=== PATIENT | male | born 1980 | race Caucasian/White ===

== ENCOUNTER 2023-03-27 13:48 | Outpatient (REF) | payer OTHER, SELFPAY ==
[2023-03-27 18:08] LABS: MANUAL DIFF FLAG NO
[2023-03-27 18:13] LABS: Basophils Absolute Auto 0.1 X10*3/uL (0.0-0.2); Basophils Percent Auto 0.8 % (0-2); Eosinophils Absolute Auto 0.2 X10*3/uL (0.0-0.4); Eosinophils Percent Auto 2.6 % (0-4); Hematocrit 43.6 % (42.0-52.0); Hemoglobin 14.9 g/dl (14.0-18.0); Imm Gran Abs Auto 0.02 X10*3/uL (0.00-0.03); Imm Gran Pct Auto 0.3 % (0.0-0.4); Lymphocytes Percent Auto 32.6 % (20-40); Mean Corpuscular HGB Conc 34.2 g/dl (31.0-36.0); Mean Corpuscular Hemoglobin 30.5 pg (27.0-33.0); Mean Corpuscular Volume 89.2 fL (80.0-98.0); Mean Platelet Volume 9.8 fL (9.4-12.4); Monocytes Absolute Auto 0.5 X10*3/uL (0.1-1.2); Monocytes Percent Auto 8.8 % (2-11); Neutrophils Absolute Auto 3.4 x10*3/uL (2.0-8.3); Neutrophils Percent Auto 54.9 % (45-73); Platelet Count 288 X10*3/uL (160-400); Red Blood Count 4.89 X10*6/uL (4.60-5.80); Red Cell Distribution Width 11.9 % (11.0-16.0); White Blood Count 6.1 X10*3/uL (4.8-10.8)
[2023-03-27 18:54] LABS: Alanine Aminotransferase 48 U/L (0-40); Albumin Level 4.2 g/dL (3.5-5.0); Alkaline Phosphatase 83 U/L (39-117); Anion Gap 13 (12-20); Aspartate Amino Transferase 32 U/L (5-37); Bilirubin Total 0.5 mg/dL (0.0-1.0); Blood Urea Nitrogen 7 mg/dL (9-16); Calcium 9.9 mg/dL (8.4-10.2); Carbon Dioxide 26 mmol/L (22-29); Chloride 103 mmol/L (96-108); Estimated Glomerular Filt Rate > 60; Glucose Random 106 mg/dL (60-115); Potassium 3.8 mmol/L (3.3-5.1); Sodium 138 mmol/L (135-145); Total Protein 7.7 g/dL (6.5-8.0)
[2023-03-31 14:04] LABS: HIV RNA PCR Qn Copies NOT DETECTED copies/mL (NOT DETECTED); HIV RNA PCR Qn Log Copies NOT DETECTED (NOT DETECTED)
== END 2023-03-27 13:49 | disposition home or self-care (01) ==
LOC: HO.HHCL 13:48
PROVIDERS: Visit Provider Family Medicine
DX: Z21 Asymptomatic human immunodeficiency virus [HIV] infection status (principal)
CPT/HCPCS: 36415; 80053; 85025; 86359; 86360; 87536

== ENCOUNTER 2023-04-10 09:31 | Outpatient (REF) | payer SELFPAY ==
[2023-04-10 12:33] LABS: Creatinine Urine 25.73 mg/dL
== END 2023-04-10 09:32 | disposition home or self-care (01) ==
LOC: HO.HHCL 09:31
PROVIDERS: Visit Provider Nurse Practitioner Primary Care
DX: E11.65 Type 2 diabetes mellitus with hyperglycemia (principal)
CPT/HCPCS: 82043; 82570

== ENCOUNTER 2023-09-24 08:54 | Outpatient (REF) | payer MEDICAID, SELFPAY ==
[2023-09-24 11:27] LABS: MANUAL DIFF FLAG NO
[2023-09-24 11:38] LABS: Basophils Percent Auto 0.5 % (0-2); Eosinophils Absolute Auto 0.1 X10*3/uL (0.0-0.4); Eosinophils Percent Auto 2.3 % (0-4); Hematocrit 43.3 % (42.0-52.0); Hemoglobin 14.7 g/dl (14.0-18.0); Imm Gran Abs Auto 0.03 X10*3/uL (0.00-0.03); Imm Gran Pct Auto 0.5 % (0.0-0.4); Lymphocytes Absolute Auto 1.7 X10*3/uL (1.2-4.9); Lymphocytes Percent Auto 29.8 % (20-40); Mean Corpuscular HGB Conc 33.9 g/dl (31.0-36.0); Mean Corpuscular Hemoglobin 30.2 pg (27.0-33.0); Mean Corpuscular Volume 89.1 fL (80.0-98.0); Mean Platelet Volume 9.7 fL (9.4-12.4); Monocytes Absolute Auto 0.5 X10*3/uL (0.1-1.2); Monocytes Percent Auto 8.3 % (2-11); Neutrophils Absolute Auto 3.3 x10*3/uL (2.0-8.3); Neutrophils Percent Auto 58.6 % (45-73); Platelet Count 319 X10*3/uL (160-400); Red Blood Count 4.86 X10*6/uL (4.60-5.80); Red Cell Distribution Width 12.2 % (11.0-16.0); White Blood Count 5.6 X10*3/uL (4.8-10.8)
[2023-09-24 12:05] LABS: Alanine Aminotransferase 50 U/L (0-40); Albumin Level 4.2 g/dL (3.5-5.0); Alkaline Phosphatase 83 U/L (39-117); Anion Gap 12 (12-20); Aspartate Amino Transferase 32 U/L (5-37); Bilirubin Total 0.4 mg/dL (0.0-1.0); Blood Urea Nitrogen 6 mg/dL (9-16); Calcium 9.8 mg/dL (8.4-10.2); Carbon Dioxide 25 mmol/L (22-29); Chloride 103 mmol/L (96-108); Cholesterol 203 mg/dL (<200); Estimated Glomerular Filt Rate > 60; Glucose Random 151 mg/dL (60-115); HDL Cholesterol 44 mg/dL (>40); LDL Cholesterol Calculated 140 mg/dL (<100); Potassium 4.4 mmol/L (3.3-5.1); Sodium 136 mmol/L (135-145); Syphilis Screen Nonreactive (Nonreactive); Total Protein 7.6 g/dL (6.5-8.0); Triglycerides 98 mg/dL (<150)
[2023-09-24 12:08] LABS: HBc Num1 0.13 S/CO (0.00-0.79); HBsAGNum1 0.51 S/CO (0.00-0.99); Hepatitis B Core Antibody Nonreactive (Nonreactive); Hepatitis B Surface Antigen Negative (Negative)
[2023-09-24 12:24] LABS: HBS Num1 17.76 mIU/mL (0-7.99); ~Hepatitis B Surface Antibody REACTIVE (Nonreactive); ~Hepatitis C Antibody Nonreactive (Nonreactive)
[2023-09-24 12:36] LABS: Reflex LDLD? No
[2023-09-25 11:33] LABS: Absolute CD3 Count 1221 cells/uL (840-3060); Absolute CD4 Count 558 cells/uL (490-1740); Absolute CD8 Count 645 cells/uL (180-1170); Absolute Lymphocytes 1758 cells/uL (850-3900); CD4 CD8 Ratio 0.86 (0.86-5.00); Percent CD3 Cells 69 % (57-85); Percent CD4 Cells 32 % (30-61); Percent CD8 Cells 37 % (12-42)
[2023-09-26 14:28] LABS: HIV RNA PCR Qn Copies 50 copies/mL (NOT DETECTED)
== END 2023-09-24 08:55 | disposition home or self-care (01) ==
LOC: HO.HHCL 08:54
PROVIDERS: Visit Provider Student in an Organized Health Care Education/Training Program
DX: B20 Human immunodeficiency virus [HIV] disease (principal)
CPT/HCPCS: 36415; 80053; 80061; 85025; 86359; 86360; 86704; 86706; 86780; 86803; 87340; 87536

== ENCOUNTER 2024-03-07 07:57 | Outpatient (REF) | payer MEDICAID, SELFPAY ==
[2024-03-07 11:20] LABS: MANUAL DIFF FLAG NO
[2024-03-07 11:31] LABS: Basophils Absolute Auto 0.1 X10*3/uL (0.0-0.2); Basophils Percent Auto 0.8 % (0-2); Eosinophils Absolute Auto 0.1 X10*3/uL (0.0-0.4); Hematocrit 41.1 % (42.0-52.0); Imm Gran Abs Auto 0.02 X10*3/uL (0.00-0.03); Imm Gran Pct Auto 0.3 % (0.0-0.4); Lymphocytes Absolute Auto 1.8 X10*3/uL (1.2-4.9); Lymphocytes Percent Auto 29.4 % (20-40); Mean Corpuscular HGB Conc 34.1 g/dl (31.0-36.0); Mean Corpuscular Hemoglobin 30.3 pg (27.0-33.0); Mean Platelet Volume 9.5 fL (9.4-12.4); Monocytes Absolute Auto 0.5 X10*3/uL (0.1-1.2); Neutrophils Absolute Auto 3.6 x10*3/uL (2.0-8.3); Neutrophils Percent Auto 59.5 % (45-73); Platelet Count 287 X10*3/uL (160-400); Red Blood Count 4.62 X10*6/uL (4.60-5.80); Red Cell Distribution Width 12.4 % (11.0-16.0)
[2024-03-07 11:45] LABS: Alanine Aminotransferase 38 U/L (0-40); Albumin Level 4.1 g/dL (3.5-5.0); Alkaline Phosphatase 73 U/L (39-117); Anion Gap 9 (12-20); Aspartate Amino Transferase 25 U/L (5-37); Bilirubin Total 0.4 mg/dL (0.0-1.0); Blood Urea Nitrogen 8 mg/dL (9-16); Carbon Dioxide 24 mmol/L (22-29); Chloride 105 mmol/L (96-108); Cholesterol 189 mg/dL (<200); Estimated Glomerular Filt Rate > 60; Glucose Random 151 mg/dL (60-115); HDL Cholesterol 47 mg/dL (>40); LDL Cholesterol Calculated 121 mg/dL (<100); Potassium 4.3 mmol/L (3.3-5.1); Sodium 134 mmol/L (135-145); Total Protein 7.2 g/dL (6.5-8.0); Triglycerides 109 mg/dL (<150)
[2024-03-07 12:30] LABS: Reflex LDLD? No
[2024-03-08 19:29] LABS: HIV RNA PCR Qn Copies 54 copies/mL (NOT DETECTED); HIV RNA PCR Qn Log Copies 1.73 (NOT DETECTED)
[2024-03-12 00:09] LABS: Absolute CD3 Count 1160 cells/uL (840-3060); Absolute CD4 Count 552 cells/uL (490-1740); Absolute CD8 Count 612 cells/uL (180-1170); Absolute Lymphocytes 1692 cells/uL (850-3900); Percent CD3 Cells 69 % (57-85); Percent CD4 Cells 33 % (30-61); Percent CD8 Cells 36 % (12-42)
== END 2024-03-07 07:58 | disposition home or self-care (01) ==
LOC: HO.HHCL 07:57
PROVIDERS: Visit Provider Internal Medicine
DX: Z21 Asymptomatic human immunodeficiency virus [HIV] infection status (principal)
CPT/HCPCS: 36415; 80053; 80061; 85025; 86359; 86360; 87536

== ENCOUNTER 2024-04-14 13:16 | Outpatient (REF) | payer MEDICAID, SELFPAY ==
[2024-04-14 14:21] LABS: Creatinine Urine 28.61 mg/dL; Microalbum/Creatinine Ratio Ur 34.9 ug/mg cr (<30)
== END 2024-04-14 13:17 | disposition home or self-care (01) ==
LOC: HO.HHCLNP 13:16
PROVIDERS: Visit Provider Nurse Practitioner Primary Care
DX: E11.65 Type 2 diabetes mellitus with hyperglycemia (principal)
CPT/HCPCS: 82043; 82570

== ENCOUNTER 2024-05-26 17:57 | Outpatient (REF) | payer OTHER, SELFPAY | END 2024-05-26 17:58 | disposition home or self-care (01) | LOC: HO.HHCLNP 17:57 | PROVIDERS: Visit Provider Internal Medicine | DX: Z21 Asymptomatic human immunodeficiency virus [HIV] infection status (principal) | CPT/HCPCS: 88112 ==

== ENCOUNTER 2024-09-02 08:25 | Outpatient (REF) | payer OTHER, SELFPAY ==
[2024-09-02 12:02] LABS: MANUAL DIFF FLAG NO
[2024-09-02 12:33] LABS: Alanine Aminotransferase 52 U/L (0-40); Alkaline Phosphatase 85 U/L (39-117); Anion Gap 10 (12-20); Aspartate Amino Transferase 38 U/L (5-37); Bilirubin Total 0.5 mg/dL (0.0-1.0); Blood Urea Nitrogen 6 mg/dL (9-16); Calcium 9.8 mg/dL (8.4-10.2); Carbon Dioxide 26 mmol/L (22-29); Chloride 106 mmol/L (96-108); Cholesterol 186 mg/dL (<200); Estimated Glomerular Filt Rate > 60; Glucose Random 139 mg/dL (60-115); HDL Cholesterol 38 mg/dL (>40); LDL Cholesterol Calculated 120 mg/dL (<100); Potassium 4.2 mmol/L (3.3-5.1); Sodium 138 mmol/L (135-145); Total Protein 7.6 g/dL (6.5-8.0); Triglycerides 140 mg/dL (<150)
[2024-09-02 12:35] LABS: Basophils Percent Auto 0.6 % (0-2); Eosinophils Percent Auto 0.9 % (0-4); Hematocrit 40.8 % (42.0-52.0); Hemoglobin 13.6 g/dl (14.0-18.0); Imm Gran Abs Auto 0.02 X10*3/uL (0.00-0.03); Imm Gran Pct Auto 0.4 % (0.0-0.4); Lymphocytes Absolute Auto 1.4 X10*3/uL (1.2-4.9); Lymphocytes Percent Auto 29.4 % (20-40); Mean Corpuscular HGB Conc 33.3 g/dl (31.0-36.0); Mean Corpuscular Hemoglobin 29.4 pg (27.0-33.0); Mean Corpuscular Volume 88.3 fL (80.0-98.0); Mean Platelet Volume 9.5 fL (9.4-12.4); Monocytes Absolute Auto 0.4 X10*3/uL (0.1-1.2); Monocytes Percent Auto 7.9 % (2-11); Neutrophils Absolute Auto 2.9 x10*3/uL (2.0-8.3); Neutrophils Percent Auto 60.8 % (45-73); Platelet Count 321 X10*3/uL (160-400); Red Blood Count 4.62 X10*6/uL (4.60-5.80); Red Cell Distribution Width 12.7 % (11.0-16.0); White Blood Count 4.7 X10*3/uL (4.8-10.8)
[2024-09-02 12:59] LABS: ~HepC Num1 0.08 S/CO (0.00-0.79); ~Hepatitis C Antibody Nonreactive (Nonreactive)
[2024-09-02 13:00] LABS: Syphilis Screen Nonreactive (Nonreactive)
[2024-09-02 14:34] LABS: CT PCR NOT DETECTED (Not Detect.); NG PCR NOT DETECTED (Not Detect.)
[2024-09-02 14:36] LABS: Reflex LDLD? No
[2024-09-03 15:13] LABS: HIV RNA PCR Qn Copies 54 copies/mL (NOT DETECTED); HIV RNA PCR Qn Log Copies 1.73 (NOT DETECTED)
[2024-09-07 16:14] LABS: Absolute CD3 Count 996 cells/uL (840-3060); Absolute CD4 Count 447 cells/uL (490-1740); Absolute CD8 Count 543 cells/uL (180-1170); Absolute Lymphocytes 1424 cells/uL (850-3900); CD4 CD8 Ratio 0.82 (0.86-5.00); Percent CD3 Cells 70 % (57-85); Percent CD4 Cells 31 % (30-61); Percent CD8 Cells 38 % (12-42)
== END 2024-09-02 08:26 | disposition home or self-care (01) ==
LOC: HO.HHCL 08:25
PROVIDERS: Visit Provider Internal Medicine
DX: Z21 Asymptomatic human immunodeficiency virus [HIV] infection status (principal)
CPT/HCPCS: 80053; 80061; 85025; 86359; 86360; 86780; 86803; 87491; 87536; 87591

== ENCOUNTER 2025-03-02 08:03 | Outpatient (REF) | payer MEDICAID, SELFPAY ==
--- OUTSIDE RECORDS SUMMARY | 2025-03-02 08:09 | XMS_ITS | Patient Health Record ---
Author Organization [facility] Address [address] [place] [address] Care Team Providers Care Qa Lead Name Role Phone MARIA LUISA WADDELL N.P. Primary Care Provider Unavailabl e Daniele Koenig Unavailable [phone] Allergies No Known Allergies Reason For Referral Referring Provider First Name MARIA LUISA Referring Provider Last Name NADIRA Crowell Referred Organization [facility] Referred Provider Daniele Koenig Referred Address [address] [place] [address],[address],[place], [place],[address], Referred Provider Specialty Gastroentero logy General Notes Ellen Rubalcava 024 11:51:52 AM EDT > requested a [facility] referrral from [facility] for visit with dr koenig on 05-24-2024 from [facility] Referral Priority Routine Medications Medication SIG (Take, Route, Frequency, Duration) Notes Start Date End Date Status Odefsey 200-25-25 MG TAKE 1 TABLET BY MOUTH AT BEDTIME Oral for 30 Z21,Unavailable Active Dulcolax (colon prep) 5 MG take at 3:00 p.m and 7:00p.m. Orally two tablets twice a day for one day for 1 day 05/24/2024 Active MiraLax (colon prep) 17 GM/SCOOP 1 238Gm bottle mixed with Gatorade or Crystal Light Orally begin at 5:00 p.m. the day before the procedure for 1 day 05/24/2024 Active metFORMIN HCl 500 MG TAKE 1 TABLET BY MOUTH TWICE DAILY WITH BREAKFAST and WITH DINNER Oral for 90 E1165,Unavailabl e Active Social History Tobacco Use: Social History Observation Description Date Details (start date - stop date) Never Smoker NA - NA Tobacco Use/Smoking Question Answer Notes Patient is a nonsmoker Alcohol Screen Question Answer Notes Did you have a drink contain ing alcohol in the past year? Yes How often did you have a dri nk containing alcohol in the past year? Monthly or less (1 point) How many drinks did you have on a typical day when you were drinking in the past year? 1 or 2 drinks (0 point) How often did you have 6 or more drinks on one occasion in the past year? Never (0 point) Points 1 Interpretation Negative Section Notes: Nonsmoker; no sig alcohol Problems Problem Type SNOMED Code ICD Code Onset Dates Problem Status W/U Status Risk Notes Problem Screening for malignant neoplasm of colon (437658280) Encounter for screening for malignant neoplasm of colon (Z12.11) Active confirmed Problem Pre-procedure evaluation check (386861922) Encounter for other preprocedural examination (Z01.818) Active confirmed Vital Signs Blood pressure diastolic 00 mm Hg 05/24/2024 Height 5 ft 6 in in 05/24/2024 Blood pressure systolic 00 mm Hg 05/24/2024 Weight 206 lbs 05/24/2024 BMI 33.25 kg/m2 05/24/2024 Encounters Encounter Location Date Provider Diagnosis [facility] [address] [place] [phone] 05/24/2024 Daniele Koenig Encounter for screen ing for malignant neoplasm of colon Z12.11 and Encounter for other preprocedural examination Z01.818 [facility] [address] [place] [phone] 05/24/2024 Daniele Koenig [facility] [address] [place] [phone] 06/05/2024 Daniele Koenig [facility] [address] [place] [phone] 10/09/2024 Daniele Koenig Assessments Encounter Date Diagnosis (ICD Code) Assessment Notes Treatment Notes Treatment Clinical Notes Section Notes 05/24/2024 Encounter for screening for malignant neoplasm of colon (ICD-10 - Z12.11) Do not take the Metformin the night before nor on the morning of the procedure Overall, Khai appears quite well. Given his age and excellent clinical appearance, I did recommend a colonoscopy for screening purposes. We did review the rationale for that In regard to colon cancer prevention. Full consent was obtained for this, including risks of bleeding and perforation. The procedure will be done with monitored anesthesia care. He was given the below instructions regarding adjustment of his medications for the procedure. Thank you again for allowing me to participate in Khai's care. I shall continue to keep you advised of his progress. 05/24/2024 Encounter for other preprocedural examination (ICD-10 - Z01.818) Overall, Khai appears quite well. Given his age and excellent clinical appearance, I did recommend a colonoscopy for screening purposes. We did review the rationale for that In regard to colon cancer prevention. Full consent was obtained for this, including risks of bleeding and perforation. The procedure will be done with monitored anesthesia care. He was given the below instructions regarding adjustment of his medications for the procedure. Thank you again for allowing me to participate in Khai's care. I shall continue to keep you advised of his progress. Plan Of Treatment Future Test Test Name Order Date COLONOSCOPY 05/24/2024 Insurance Providers Payer Name Payer Address Payer Phone Subscriber Number Group Number Insured Name Patient Relationship to Insured Coverage Start Date Coverage End Date [facility] [address] [place] [phone] [id number] KHAI COLMENARES Self - patient is the insured Medical (General) History Medical History History ICD Code NIDDM HIV Denies [place],CVA,Lung disease,renal disease Surgical History Surgery Date(Month/Year)
[2025-03-02 11:06] LABS: MANUAL DIFF FLAG NO
[2025-03-02 11:21] LABS: Hematocrit 40.6 % (42.0-52.0); Hemoglobin 13.6 g/dl (14.0-18.0); Imm Gran Abs Auto 0.02 X10*3/uL (0.00-0.03); Imm Gran Pct Auto 0.4 % (0.0-0.4); Lymphocytes Absolute Auto 1.5 X10*3/uL (1.2-4.9); Mean Corpuscular HGB Conc 33.5 g/dl (31.0-36.0); Mean Corpuscular Hemoglobin 28.9 pg (27.0-33.0); Mean Corpuscular Volume 86.4 fL (80.0-98.0); NRBC Abs Auto 0.000 X10*3/uL (0.0-0.012); NRBC Pct Auto 0.0 /100WBC (0.0-0.2); Platelet Count 295 X10*3/uL (160-400); Red Blood Count 4.70 X10*6/uL (4.60-5.80); White Blood Count 5.3 X10*3/uL (4.8-10.8)
[2025-03-02 11:37] LABS: Alanine Aminotransferase 59 U/L (0-40); Albumin Level 4.2 g/dL (3.5-5.0); Alkaline Phosphatase 81 U/L (39-117); Anion Gap 12 (12-20); Aspartate Amino Transferase 47 U/L (5-37); Blood Urea Nitrogen 7 mg/dL (9-16); Calcium 9.2 mg/dL (8.4-10.2); Carbon Dioxide 23 mmol/L (22-29); Chloride 105 mmol/L (96-108); Estimated Glomerular Filt Rate > 60; Potassium 4.3 mmol/L (3.3-5.1); Sodium 136 mmol/L (135-145); Total Protein 7.3 g/dL (6.5-8.0)
[2025-03-03 15:53] LABS: HIV RNA PCR Qn Copies 114 copies/mL (NOT DETECTED); HIV RNA PCR Qn Log Copies 2.06 (NOT DETECTED)
[2025-03-04 21:49] LABS: TS Negative Control Passed; TS Panel A 1; TS Panel B 5; TS Positive Control Passed; TSpotTB Borderline (Negative)
[2025-03-07 16:58] LABS: Absolute CD3 Count 1098 cells/uL (840-3060); Absolute CD8 Count 545 cells/uL (180-1170); Percent CD3 Cells 73 % (57-85); Percent CD8 Cells 36 % (12-42)
== END 2025-03-02 08:04 | disposition home or self-care (01) ==
LOC: HO.HHCL 08:03
PROVIDERS: PCP Nurse Practitioner Primary Care; Visit Provider Internal Medicine
DX: Z21 Asymptomatic human immunodeficiency virus [HIV] infection status (principal); Z11.1 Encounter for screening for respiratory tuberculosis
CPT/HCPCS: 36415; 80053; 85025; 86359; 86360; 86481; 87536

== ENCOUNTER 2025-06-15 11:35 | Outpatient (REF) | payer MEDICAID, SELFPAY ==
--- OUTSIDE RECORDS SUMMARY | 2024-10-10 02:30 | XMS_ITS ---
Author Organization [facility] Address [address] [place] [address] Care Team Providers Care Rectification Printer Name Role Phone MARIA LUISA WADDELL N.P. Primary Care Provider Daniele Butterfield [phone] REASON FOR VISIT screening Encounters Encounter Location Date Provider Diagnosis [facility] [address] [place] [phone] 10/10/2024 Daniele Diggs Plan Of Treatment No Information Progress Notes * KHAI COLMENARESDOB:1980 (45 yo M)Acc No.[id number]:10/10/2024 COLON WITH MAC Patient: KHAI AL Provider: Swapna Diggs MD :1980 A ge:44 Y S ex:Male Date:10/10/2024 Address:[address] [place], [place] [id number] Pcp:MARIA LUISA WADDELL N.P. Subjective: * Chief Complaints: * 1 . Screening. * Medical History: Objective: * Vitals: Assessment: Plan: * Treatment: * * The named appointment provid er may or may not be the originator of this progress note, and it is not deemed complete until electronically signed by the appointment provider. Sign off status: Pending * Provider: Swapna Diggs MD Date: 0 10/10/2024 Generated for Shanelle alcala/Faterryg/eTransmitting on: 1 08/15/2024 09:28 AM EST
--- OUTSIDE RECORDS SUMMARY | 2025-06-15 14:46 | XMS_ITS | Patient Health Record ---
Author Organization [facility] Address [address] [place] [phone] Care Team Providers Care Licensed Aircraft Maintenance Engineer Name Role Phone MARIA LUISA WADDELL N.P. Primary Care Provider Unavailabl e Daniele Diggs Unavailable [phone] Allergies No Known Allergies Reason For Referral No Information Medications Medication SIG (Take, Route, Frequency, Duration) Notes Start Date End Date Status Odefsey 200-25-25 MG TAKE 1 TABLET BY MOUTH AT BEDTIME Oral; Duration: 30 Z21,Unavailable Active Dulcolax (colon prep) 5 MG take at 3:00 p.m and 7:00p.m. Orally two tablets twice a day for one day; Duration: 1 day 05/24/2024 Active MiraLax (colon prep) 17 GM/SCOOP 1 238Gm bottle mixed with Gatorade or Crystal Light Orally begin at 5:00 p.m. the day before the procedure; Duration: 1 day 05/24/2024 Active metFORMIN HCl 500 MG TAKE 1 TABLET BY MOUTH TWICE DAILY WITH BREAKFAST and WITH DINNER Oral; Duration: 90 E1165,Unavailabl e Active Social History Tobacco [...] Problem Screening for malignant neoplasm of colon (576629341) Encounter for screening for malignant neoplasm of colon (Z12.11) Active confirmed Problem Pre-procedure evaluation check (747992891) Encounter for other preprocedural examination (Z01.818) Active confirmed Encounters Encounter Location Date Provider Diagnosis [facility] [address] [place] [address] 10/09/2024 Daniele Diggs Plan Of Treatment Future Test Test Name Order Date COLONOSCOPY 05/24/2024 Insurance Providers Payer Name Payer Address Payer Phone Subscriber Number Group Number Insured Name Patient Relationship to Insured Coverage Start Date Coverage End Date MEDICAID OF [employer] [address] [place] [phone] [id number] KHAI COLMENARES Self - patient is the insured Medical (General) History Medical History History ICD Code NIDDM HIV Denies [place],CVA,Lung disease,renal disease Surgical History Surgery Date(Month/Year)
== END 2025-06-15 11:36 | disposition home or self-care (01) ==
LOC: HO.LNP 11:35
PROVIDERS: Visit Provider Internal Medicine
DX: Z21 Asymptomatic human immunodeficiency virus [HIV] infection status (principal)
CPT/HCPCS: 88112

== ENCOUNTER 2025-06-23 16:31 | Outpatient (REF) | payer MEDICAID, SELFPAY ==
--- OUTSIDE RECORDS SUMMARY | 2025-06-23 16:32 | XMS_ITS | Patient Health Record ---
Author Organization [facility] Address [address] [place] [address] Care Team Providers Care Wagon Washer Name Role Phone MARIA LUISA WADDELL N.P. Primary Care Provider Unavailwiley e Daniele Diggs Unavailable [phone] Allergies No Known Allergies Reason For Referral No Information Medications Medication SIG (Take, Route, Frequency, Duration) Notes Start Date End Date Status Odefsey 200-25-25 MG Tablet TAKE 1 TABLET BY MOUTH AT BEDTIME Oral; Duration: 30 Z21,Unavailable Active Dulcolax (colon prep) 5 MG Tablet Delayed Release take at 3:00 p.m and 7:00p.m. Orally two tablets twice a day for one day; Duration: 1 day 05/24/2024 Active MiraLax (colon prep) 17 GM/SCOOP Powder 1 238Gm bottle mixed with Gatorade or Crystal Light Orally begin at 5:00 p.m. the day before the procedure; Duration: 1 day 05/24/2024 Active metFORMIN HCl 500 MG Tablet TAKE 1 TABLET BY MOUTH TWICE DAILY WITH BREAKFAST and WITH DINNER Oral; Duration: 90 E1165,Unavailabl e Active Social History Tobacco Use: Social History Observation Description Date Details (start date - stop date) Never Smoker NA - NA Social History Drugs/Alcohol: Social Info Question Answer Notes Alcohol Screen Did you have a drink containing alcohol in the past year? Yes How often did you have a drink containing alcohol in the past year? Monthly or less (1 point) How many drinks did you have on a typical day when you were drinking in the past year? 1 or 2 drinks (0 point) How often did you have 6 or more drinks on one occasion in the past year? Never (0 point) Points 1 Interpretation Negative Tobacco Use: Social Info Question Answer Notes Tobacco Use/Smoking Patient is a nonsmoker Additional Details Category Social Info Options Details Miscellaneous: Marital status: Occupation: Works in a [employer] store Section Notes: Nonsmoker; no sig alcohol Problems Problem Type SNOMED Code ICD Code Onset Dates Problem Status W/U Status Risk Notes Problem Screening for malignant neoplasm of colon (893284415) Encounter for screening for malignant neoplasm of colon (Z12.11) Active confirmed Problem Pre-procedure evaluation check (676792050) Encounter for other preprocedural examination (Z01.818) Active confirmed Encounters Encounter Location Date Provider Diagnosis [facility] [address] [place] [address] 10/09/2024 Daniele Diggs Plan Of Treatment Future Test Test Name Order Date COLONOSCOPY 05/24/2024 Insurance Providers Payer Name Payer Address Payer Phone Subscriber Number Group Number Insured Name Patient Relationship to Insured Coverage Start Date Coverage End Date [facility] [address] [place] [phone] [id number] KHAI COLMENARES Self - patient is the insured Medical (General) History Medical History History ICD Code NIDDM HIV Denies [place],CVA,Lung disease,renal disease Surgical History Surgery Date(Month/Year)
[2025-06-23 17:54] LABS: Microalbum/Creatinine Ratio Ur 88.0 ug/mg cr (<30)
== END 2025-06-23 16:32 | disposition home or self-care (01) ==
LOC: HO.HHCLNP 16:31
PROVIDERS: Visit Provider Nurse Practitioner Primary Care
DX: E11.65 Type 2 diabetes mellitus with hyperglycemia (principal)
CPT/HCPCS: 82043; 82570